=== PATIENT | female | born 1985 | race African-American/Black ===

== ENCOUNTER 2017-07-25 15:25 | Emergency (ER) | payer BC, OTHER ==
[~2017-07-25] VITALS: Ht 170.2 cm; Wt 70.8 kg
[~2017-07-25 15:25] MED LIST: AZITHROMYCIN250 MG ORAL; BACTRIM-DS1 EA PO; CLINDAMYCIN HC300 MG ORAL; IBUPROFEN600 MG ORAL; IBUPROFEN600 MG PO; IBUPROFEN800 MG ORAL; NKM; NORCO 5-325 TA1 EACH ORAL; PHENERGAN6.25 MG/5 ORAL; PREDNISONE20 MG ORAL; VICODIN 5-5001 EACH PO
[2017-07-25 15:51] VITALS: BP 115/76
--- NOTE | 2017-07-25 16:17 | Emergency Room Report ---
History of Present Illness General Chief Complaint: Skin Rash/Abscess Source: Patient Present Illness HPI 32 yo female patient presents to ER complaining of itchy rash all over body since last Tuesday. 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 Denies others at with similar symptoms. Denies fever, chest pain, SOB, nausea, vomiting. Reports taking Benadryl, last dosage yesterday. Patient reports up to date on all vaccinations. Patient denies recent travel or camping outdoors. Allergies: Coded Allergies: IODINE (Verified Allergy, Severe, sob, 07/31/12) PENICILLINS (Verified Allergy, Severe, sob, 07/31/12) SULFA (SULFONAMIDE ANTIBIOTICS) (Verified Allergy, Mild, Hives, 12/23/13) Uncoded Allergies: SEAFOOD (Allergy, Mild, Hives, 12/23/13) Patient History Past Medical History: see triage record Now: No Reviewed Nursing Documentation: PMH: Agreed, PSxH: Agreed Nursing Documentation-PMH Past Medical History: No Stated History Review of Systems All Other Systems: negative except mentioned in HPI Physical Exam Vital Signs Date Time Temp Pulse Resp B/P (MAP) Pulse Ox O2 Delivery O2 Flow Rate FiO2 07/25/17 15:41 98.7 92 18 115/76 100 Room Air 98.8 Sp02 EP Interpretation: reviewed, normal General Appearance: well appearing, no apparent distress, alert, GCS 15 Head: normocephalic, atraumatic Eyes: bilateral eye normal inspection, bilateral eye PERRL ENT: hearing grossly normal, normal pharynx, no angioedema, normal voice, uvula midline, moist mucus membranes Neck: full range of motion Respiratory: lungs clear, normal breath sounds, no rhonchi, no respiratory distress, no accessory muscle use, no wheezing, speaking full sentences Cardiovascular #1: regular rate, rhythm, no edema Gastrointestinal: non tender, soft, no mass, non-distended, no guarding, no rebound Genitourinary: no CVA tenderness Musculoskeletal: back normal, digits/nails normal, gait/station normal, normal range of motion, non-tender Neurologic: alert, oriented x3, responsive, motor strength/tone normal, sensory intact Psychiatric: mood/affect normal Skin: other - maculopapular rash diffsue over entire body; spares face Lymphatic: no adenopathy Medical Decision Making PA Attestation Dr. Rubin is my supervising Physician whom patient management has been discussed with. Diagnostic Impression: Primary Impression: Rash and other nonspecific skin eruption ER Course Pt. presents to the ED c/o rash. Ddx considered but are not limited to atopic dermatitis, scabies, shingles, hives, urticaria, allergic reaction. Scabies unlikely because no on else is household has symptoms. Vital signs: are WNL, pt. is afebrile Ordered prednisone and Benadryl for patient. ER COURSE: Patient was about to leave without being seen. Patient complains of rash over entire body; scratch bledsoe seen on dry skin on legs; no excoriations, no bleeding, no skin breaks. Will treat patient symptomatically, patient need to followup with primary care for further treatment and referral as needed. Provided patient with first dose of prednisone, take steroid rx at home beginning tomorrow. Instructed patient to clean clothes and bedding at home thoroughly. DISCHARGE: At this time pt. is stable for d/c to home. Will provide printed patient care instructions, and any necessary prescriptions. -Rx given for Hydroxyzine for pruritis. -Rx given for Prednisone, begin taking tomorrow. -Rx give for Hydrocortisone-aloe vera cream. Do not use over entire body, apply to areas that are extremely pruritic. Care plan and follow up instructions have been discussed with the patient prior to discharge. Patient provided with list of healthcare clinics to establish primary care physician. Patient instructed to follow-up with primary care provider in 2-3 days for further treatment and referral, Patient questions asked and answered. ER precautions given. Patient instructed to return to ER immediately for any new or worsening of symptoms including but not limited to increasing SOB, persistent fever. Last Vital Signs Date Time Temp Pulse Resp B/P (MAP) Pulse Ox O2 Delivery O2 Flow Rate FiO2 07/25/17 15:41 98.7 92 18 115/76 100 Room Air 98.8 Disposition: HOME, SELF-CARE Condition: Stable Scripts Prednisone* (PREDNISONE*) 20 Mg Tablet 40 MG ORAL DAILY for 4 Days, #8 TAB Prov: Laurent Garcia P.A. 07/25/17 Hydroxyzine Pamoate* (HYDROXYZINE PAMOATE*) 100 Mg Capsule 100 MG ORAL Q6H, #20 TAB 0 Refills Prov: Laurent Garcia P.A. 07/25/17 Hydrocortisone/Aloe Vera 1%* (HYDROCORTISONE-ALOE 1% CREAM*) Y Cr 1 APPLIC TOPIC Q6H Y for Itching, #30 GM Prov: Laurent Garcia 07/25/17 Patient Instructions: Rash Additional Instructions: Followup with primary care provider in 2- 3 days for further treatment and referral to dermatology and living specialist as needed. Do not use steroid cream over entire body, use over areas of extreme itching. Do not scratch. Take medications as directed. Patient questions asked and answered. ER precautions given, patient instructed to return to ER immediately for any new or worsening of symptoms. Laurent Garcia Jul 25, 2017 16:17
[2017-07-25] MEDS ORDERED: HYDROCORTISONE-30 GM TOPIC (16:49)
[2017-07-25] MEDS ORDERED: HYDROXYZINE PA100 MG ORAL (16:49)
[2017-07-25] MEDS ORDERED: PREDNISONE20 MG ORAL (16:49)
[2017-07-25 17:00] VITALS: BP 115/76
== END 2017-07-25 16:30 | disposition home or self-care (01) ==
LOC: EMR 16:00
DX: R21 Rash and other nonspecific skin eruption (principal); Z88.2 Allergy status to sulfonamides; Z91.041 Radiographic dye allergy status; Z88.0 Allergy status to penicillin; Z91.013 Allergy to seafood
CPT/HCPCS: 99284; J7512

== ENCOUNTER 2018-05-09 19:29 | Emergency (ER) | payer OTHER ==
[~2018-05-09] VITALS: Ht 165.1 cm; Wt 72.6 kg
[~2018-05-09 19:29] MED LIST changes: +HYDROCORTISONE-30 GM TOPIC; +HYDROXYZINE PA100 MG ORAL
[2018-05-09] MEDS ORDERED: Ketorolac 30mg Inj IM ONE (20:15)
[2018-05-09] MEDS ORDERED: Methocarbamol 750mg tab ORAL ONE (20:15)
[2018-05-09] MEDS ORDERED: Metoclopramide 10mg/2ml Inj ONE (20:22)
--- NOTE | 2018-05-09 20:43 | Emergency Room Report ---
History of Present Illness General Chief Complaint: Pain Present Illness HPI 33-year-old female presents to the emergency department complaining of 10 out of 10 in severity headache 4 days. Patient reports she has a history of migraines and she typically will have headaches about 3 times per week however they usually resolves after she takes Excedrin Migraine. Patient she was previously prescribed a migraine medication by her neurologist however she had torticollis from the medication and self discontinued. Patient denies sudden onset, fevers, chills she reports photophobia and hyperacusis. Patient reports nausea but denies vomiting. Patient also states that she has been having pain to the right hip for approximately one week. Patient states pain was exacerbated after she fell asleep in the bathtub laying on the right side. Patient denies trauma or fall. Denies numbness tingling or loss of sensation or gross motor movements of the extremities, incontinence of bowel or bladder. Denies CP, Palpitations, LOC, AMS, dizziness, Changes in Vision or weakness. Pt. describes tightness in the right hip and speculates that she may have pulled something. She states she was in the bathtub trying to soothe her hip pain that had already begun to develop. Allergies: Coded Allergies: IODINE (Verified Allergy, Severe, sob, 07/31/12) PENICILLINS (Verified Allergy, Severe, sob, 07/31/12) SULFA (SULFONAMIDE ANTIBIOTICS) (Verified Allergy, Mild, Hives, 12/23/13) Uncoded Allergies: SEAFOOD (Allergy, Mild, Hives, 12/23/13) Patient History Past Medical History: see triage record Past Surgical History: none Pertinent Family History: none Last Menstrual Period: apr 12 Now: No Reviewed Nursing Documentation: PMH: Agreed; PSxH: Agreed Nursing Documentation-PMH Hx Neurological Problems: Yes - migraine Review of Systems All Other Systems: negative except mentioned in HPI Physical Exam Vital Signs Date Time Temp Pulse Resp B/P (MAP) Pulse Ox O2 Delivery O2 Flow Rate FiO2 05/09/18 19:33 99.0 83 16 110/75 99 Room Air Sp02 EP Interpretation: reviewed, normal General Appearance: no apparent distress, alert, GCS 15, non-toxic Head: normocephalic, atraumatic Eyes: bilateral eye normal inspection, bilateral eye PERRL, bilateral eye EOMI , bilateral eye photophobia ENT: hearing grossly normal, normal voice Neck: full range of motion, no meningismus, no bony tend Respiratory: chest non-tender, lungs clear, normal breath sounds, speaking full sentences Cardiovascular #1: regular rate, rhythm Musculoskeletal: back normal, gait/station normal, normal range of motion, tender - lateral and upper posterior right hip. FROM, no clicking, no leg length discrepancy, no obvious deformity, no bruising. able to bear weight and has a normal gait. Neurologic: alert, oriented x3, responsive, motor strength/tone normal, sensory intact, normal gait, speech normal, other - no facial droop or motor weakness, grossly normal Psychiatric: judgement/insight normal Skin: normal color, no rash, warm/dry, well hydrated Medical Decision Making PA Attestation Dr. Silva is my supervising Physician whom patient management has been discussed with. Diagnostic Impression: Primary Impression: Migraine Qualified Codes: G43.101 - Migraine with aura, not intractable, with status migrainosus Additional Impression: Hip pain, right ER Course 33-year-old female presents to the emergency department complaining of 10 out of 10 in severity headache 4 days. Patient reports she has a history of migraines and she typically will have headaches about 3 times per week however they usually resolves after she takes Excedrin Migraine. Patient she was previously prescribed a migraine medication by her neurologist however she had torticollis from the medication and self discontinued. Patient denies sudden onset, fevers, chills she reports photophobia and hyperacusis. Patient reports nausea but denies vomiting. Patient also states that she has been having pain to the right hip for approximately one week. Patient states pain was exacerbated after she fell asleep in the bathtub laying on the right side. Patient denies trauma or fall. Denies numbness tingling or loss of sensation or gross motor movements of the extremities, incontinence of bowel or bladder. Denies CP, Palpitations, LOC, AMS, dizziness, Changes in Vision or weakness. Pt. describes tightness in the right hip and speculates that she may have pulled something. She states she was in the bathtub trying to soothe her hip pain that had already begun to develop. Ddx considered but are not limited to migraine, SAH, Pseudomotor Cerebri, Mass lesion, Cluster JOHNSON, Tension JOHNSON, Post lumbar puncture JOHNSON. Vital signs: are WNL, pt. is afebrile H&PE are most consistent with migraine headache ORDERS: ED INTERVENTIONS: - Reglan 10mg IM -IM Toradol -Robaxin PO --UPON Re-EVAL: pt. reports her JOHNSON has resolved, she no longer has photophobia. DISCHARGE: At this time pt. is stable for d/c to home. Will provide printed patient care instructions, and any necessary prescriptions. Care plan and follow up instructions have been discussed with the patient prior to discharge. Last Vital Signs Date Time Temp Pulse Resp B/P (MAP) Pulse Ox O2 Delivery O2 Flow Rate FiO2 05/09/18 19:33 99.0 83 16 110/75 99 Room Air Disposition: HOME, SELF-CARE Condition: Stable Scripts Butalb/Acetaminophen/Caffeine ([id number] [id number]) 1 Each Tablet 1 EACH PO Q8HR PRN for For Headache, #10 TAB Prov: Annika Carrasco 05/09/18 Methocarbamol* (ROBAXIN-750*) 750 Mg Tablet 750 MG PO TID for 7 Days, #21 TAB 0 Refills Prov: Annika Carrasco 05/09/18 Patient Instructions: Recurrent Migraine Headache, [id number] Additional Instructions: Take medications as directed. Follow up with a Primary Care Provider in 3-5 days For a referral to have NEUROLOGIST Evaluation, even if your symptoms have resolved. --Please review list of primary care clinics, if you do not already have a primary care provider Return sooner to ED if new symptoms occur, or current symptoms become worse. - Please note that this Emergency Department Report was dictated using [employer] technology software, occasionally this can lead to erroneous entry secondary to interpretation by the dictation equipment. Annika Carrasco May 09, 2018 20:43
[2018-05-09] MEDS ORDERED: ROBAXIN-750750 MG PO (21:20)
[2018-05-09] MEDS ORDERED: BUTALB-ACETAMI1 EAC1 PO (21:20)
[2018-05-09 21:30] VITALS: BP 117/71
[2018-05-09 21:45] VITALS: BP 109/64
[2018-05-09] MEDS ORDERED: Metoclopramide 10mg/2ml Inj IM ONE (22:00)
== END 2018-05-09 21:45 | disposition home or self-care (01) ==
LOC: EMR 21:05
DX: G43.909 Migraine, unspecified, not intractable, without status migrainosus (principal); M25.551 Pain in right hip; Z88.2 Allergy status to sulfonamides; Z88.0 Allergy status to penicillin; Z91.041 Radiographic dye allergy status; Z91.013 Allergy to seafood
CPT/HCPCS: 96372; 99283; J1885; J2765